=== PATIENT | male | born 1995 | race Asian ===

== ENCOUNTER 2016-07-27 14:17 | Emergency (ER) | payer OTHER | END 2016-07-27 17:07 | disposition home or self-care (01) | LOC: FER 14:17 | DX: S16.1XXA Strain of muscle, fascia and tendon at neck level, initial encounter (principal); S39.012A Strain of muscle, fascia and tendon of lower back, initial encounter; W17.89XA Other fall from one level to another, initial encounter; Y92.59 Other trade areas as the place of occurrence of the external cause | CPT/HCPCS: 70450; 72050; 72110 ==